=== PATIENT | male | born 1985 | race Caucasian/White ===

== ENCOUNTER 2017-11-03 23:28 | Emergency (ER) | payer OTHER ==
[2017-11-04 00:21] VITALS: BMI 28.7
[2017-11-04 00:28] VITALS: RESP 16; O2SAT 97
[2017-11-04 01:58] LABS: BASO % 0.2 % (0.0-2.0); EOS # 0.1 K/uL (0.0-0.7); EOS % 1.1 % (0.0-4.0); HEMOGLOBIN 15.1 g/dL (12.0-18.0); LYMPH # 2.1 K/uL (1.0-4.3); LYMPH % 26.1 % (20.0-40.0); MEAN CELL VOLUME 91.5 fl (80.0-94.0); MEAN CORPUSCULAR HEMOGLOBIN 32.6 pg (27.0-31.0); MEAN CORPUSCULAR HGB CONC 35.6 g/dL (33.0-37.0); MONO # 0.7 K/uL (0.0-0.8); MONO % 9.2 % (0.0-10.0); NEUT # 5.1 K/uL (1.8-7.0); NEUT % 63.4 % (50.0-75.0); NRBC % 0.1 % (0.0-0.0); RBC 4.64 Mil/uL (4.40-5.90); RED CELL DISTRIBUTION WIDTH 12.4 % (11.5-14.5); WHITE BLOOD COUNT 8.1 K/uL (4.8-10.8)
[2017-11-04 02:06] LABS: ALB/GLOB RATIO 1.3 (1.0-2.1); ALBUMIN 4.1 g/dL (3.5-5.0); ALT/SGPT 40 U/L (21-72); AST/SGOT 31 U/L (17-59); BLOOD UREA NITROGEN 17 mg/dl (9-20); CALCIUM 9.4 mg/dL (8.4-10.2); GFR AFRICAN-AMERICAN > 60; GFR NON-AFRICAN AMERICAN > 60
--- NOTE | 2017-11-04 02:51 | ED PDOC ---
HPI: Skin/Bite Injury Time Seen by Provider: 11/04/17 00:26 Chief Complaint (Nursing): Abnormal Skin Integrity History Per: Patient History/Exam Limitations: no limitations Additional Complaint(s): 32 yo M with no significant PMH, presents with mouth sores and painless rash to his body which started yesterday. Patient states that he just returned from a vacation in [place] 10 days ago and states that he went camping and swimming in a pool. He admits to using proper precautions when camping including using insect repellent and does not recall being bit by a mosquito. Otherwise : (+) nasal congestion x 2 days, which started 3 days ago, but resolved, (-) cough, (- ) sore throat, (-) URI, (-) fever, (-) chest pain, (-) SOB, (-) headache, (-) N/ V/D, (-) abdominal pain, (-) urinary symptoms, (-) muscle/joint pain, (-) weakness, (-) new food/medications/soaps/lotions, (-) sick contacts. Past Medical History Vital Signs: Last Vital Signs Temp 98.4 F 11/04/17 00:21 Pulse 74 11/04/17 00:21 Resp 16 11/04/17 00:21 BP 121/76 11/04/17 00:21 Pulse Ox 97 11/04/17 02:51 - Medical History PMH: No Chronic Diseases - Family History Family History: States: No Known Family Hx - Immunization History Hx Tetanus Toxoid Vaccination: No Hx Influenza Vaccination: No Hx Pneumococcal Vaccination: No - Home Medications Home Medications: Ambulatory Orders Medication Instructions Recorded Amoxicillin/Clavulanate [Augmentin 1 tab PO BID #20 tab 12/10/13 875 MG-125 MG] Naproxen [Naprosyn] 1 tab PO BID PRN #25 tab 12/10/13 - Allergies Allergies/Adverse Reactions: Allergies Allergy/AdvReac Type Severity Reaction Status Date / Time No Known Allergies Allergy Verified 11/04/17 00:20 Review of Systems Constitutional: Negative for: Fever, Weakness, Malaise ENT: Positive for: Nose Discharge, Nose Congestion, Other (mouth sores) Cardiovascular: Negative for: Chest Pain, Palpitations Respiratory: Negative for: Cough, Shortness of Breath Gastrointestinal: Negative for: Vomiting, Abdominal Pain, Diarrhea Genitourinary Male: Negative for: Dysuria, Frequency, Hematuria Musculoskeletal: Positive for: Other (no joint pain or muscle pain). Negative for: Neck Pain Skin: Positive for: Rash. Negative for: Lesions, Jaundice, Bruising Neurological: Negative for: Weakness, Numbness, Headache, Dizziness Physical Exam - Reviewed Vital Signs Reviewed: Yes - Physical Exam Appears: Positive for: Well, Non-toxic, No Acute Distress Head Exam: Positive for: ATRAUMATIC, NORMAL INSPECTION, NORMOCEPHALIC Skin: Positive for: Normal Color, Warm, Rash (+diffuse scattered tiny erythematous flat circular lesions to trunk and all 4 extremities, sparing palsm and soles) Eye Exam: Positive for: EOMI, Normal appearance, PERRL ENT: Positive for: Normal ENT Inspection, Other (+few shallow ulcers to the lower lip, +tiny erthematous circular lesions to the soft palate). Negative for : Tonsillar Exudate, Tonsillar Swelling Neck: Positive for: Normal, Painless ROM Cardiovascular/Chest: Positive for: Regular Rate, Rhythm Respiratory: Positive for: Normal Breath Sounds. Negative for: Rales, Rhonchi, Wheezing Gastrointestinal/Abdominal: Positive for: Normal Exam, Soft. Negative for: Tenderness Back: Positive for: Normal Inspection Extremity: Positive for: Normal ROM, Capillary Refill (normal). Negative for: Tenderness, Deformity, Swelling Neurologic/Psych: Positive for: Alert, brake repairer II-XII, Oriented. Negative for: Motor/Sensory Deficits, Facial Droop - Laboratory Results Result Diagrams: 11/04/17 01:54 11/04/17 01:54 - ECG O2 Sat by Pulse Oximetry: 97 Medical Decision Making Medical Decision Making: Patient is requesting labs to be done. Patient made mcfadden that labs are unnecessary considering that he likely has a stomatitis with viral exanthem. However the patient states that he would be more comfortable if labs were done. CBC and CMP ordered. On re-evaluation, patient reports no other complaints at this time. On exam, patient remains AAOx3, in no acute distress. Lab results reviewed and are wnl, results d/w the patient. Diagnosis of stomatitis and viral exanthem d/w the patient. Based on history, exam and diagnostic results, plan will be for outpatient follow up. Patient instructed to follow-up with pmd or referral provided in 1-2 days without fail. Return to the emergency room at any time for any new or worsening symptoms. Patient states he fully agrees with and understands discharge instructions. States that he agrees with the plan and disposition. Verbalized and repeated discharge instructions and plan. I have given the patient opportunity to ask any additional questions. Disposition - Clinical Impression Clinical Impression: Rash, Stomatitis - Patient ED Disposition Is Patient to be Admitted: No Counseled Patient/Family Regarding: Studies Performed, Diagnosis, Need For Followup - Disposition Referrals: Dalton Medellin MD [Staff Provider] - Disposition: Routine/Home Disposition Time: 02:45 Condition: STABLE Additional Instructions: Thank you for letting us take care of you today. You were treated for stomatitis , viral exanthem. The emergency medical care you received today was directed at your acute symptoms. You can take over the counter benadryl or zyrtec for your symptoms. It may take several days for your symptoms to resolve. Return to the Emergency Department if your symptoms worsen, do not improve, or if you have any other problems. Please contact your doctor in 2 days for re-evaluation and follow up / or call one of the physicians/clinics you have been referred to that are listed on the Patient Visit Information form that is included in your discharge packet. Bring any paperwork you were given at discharge with you along with any medications you are taking to your follow up visit. Our treatment cannot replace ongoing medical care by a primary care provider (PCP) outside of the emergency department. Thank you for allowing the [facility] team to be part of your care today. Instructions: Mouth Sores, Viral Exanthem (DC) Forms: [employer] ([employer]) - PA / QC TECH / Resident Statement MD/DO has reviewed & agrees with the documentation as recorded.
[2017-11-04 05:01] VITALS: BP 122/78; PULSE 86; TEMP 98.2
== END 2017-11-04 02:45 | disposition home or self-care (01) ==
LOC: H.ER 23:28
DX: K12.1 Other forms of stomatitis (principal)